=== PATIENT | female | born 1955 | race Caucasian/White ===

== ENCOUNTER 2016-07-05 13:15 | Emergency (ER) | payer OTHER ==
[2016-07-05 13:28] VITALS: BP 145/77; PULSE 86; TEMP 98.5; BMI 20.5
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
== END 2016-07-05 15:11 | disposition home or self-care (01) ==
LOC: JERFT 13:15
DX: T23.191A Burn of first degree of multiple sites of right wrist and hand, initial encounter (principal); X12.XXXA Contact with other hot fluids, initial encounter; Y93.89 Activity, other specified; Y92.251 Museum as the place of occurrence of the external cause; Y99.8 Other external cause status; E78.00 Pure hypercholesterolemia, unspecified; R73.03 Prediabetes; Z86.73 Personal history of transient ischemic attack (TIA), and cerebral infarction without residual deficits
CPT/HCPCS: 99281-25

== ENCOUNTER 2017-04-18 13:42 | Emergency (ER) | payer OTHER ==
--- NOTE | 2017-04-18 14:12 | PDOC ---
History of Present Illness - General Chief Complaint: CVA/TIA Stated Complaint: LT SIDE NUMBNESS Past History - Past Medical History Allergies/Adverse Reactions: Allergies Allergy/AdvReac Type Severity Reaction Status Date / Time No Known Allergies Allergy Verified 07/05/16 13:24 Home Medications: Ambulatory Orders Aspirin [ASA -] 81 mg PO DAILY 03/29/14 Atorvastatin Ca [Lipitor -] 20 mg PO HS 03/29/14 Calcium Carbonate/Vitamin D3 [Calcium + Vitamin D Tablet] 1 each PO DAILY Multivitamins [Multivit ([facility] Formul[facility])] 1 tab PO DAILY 03/29/14 CVA: Yes (TIA) Diabetes: Yes (pre diabetic) Hypercholesterolemia: Yes - Suicide/Smoking/Psychosocial Hx Smoking History: Never smoked Hx Alcohol Use: Yes (SOCIAL) Drug/Substance Use Hx: No Substance Use Type: None
[2017-04-18] MEDS ORDERED: SODIUM CHLORIDE 1,000 ML IV SCH (14:15)
[2017-04-18 14:17] VITALS: BMI 23.3
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
--- NOTE | 2017-04-18 14:53 | EKG ---
Test Reason : Blood Pressure : / mmHG Vent. Rate : 097 BPM Atrial Rate : 097 BPM P-R Int : 158 ms QRS Dur : 082 ms QT Int : 354 ms P-R-T Axes : 066 042 068 degrees QTc Int : 449 ms NORMAL SINUS RHYTHM BIATRIAL ENLARGEMENT CANNOT RULE OUT ANTERIOR INFARCT , AGE UNDETERMINED ABNORMAL ECG WHEN COMPARED WITH ECG OF 04-SEP-2015 12:38, NO SIGNIFICANT CHANGE WAS FOUND Confirmed by CHAD JENKINS, BARRY ([id number]) on 04/18/2017 2:52:37 PM Referred By: Confirmed By:BARRY BONILLA MD
[2017-04-18 14:54] LABS: BASO % 0.5 % (0-2.0); EOS % 0.4 % (0-4.5); HEMATOCRIT 40.3 % (32.4-45.2); HEMOGLOBIN 13.2 GM/dL (10.7-15.3); LYMPH % 28.2 % (8-40); MCH 30.1 pg (25.7-33.7); MCHC 32.7 g/dl (32.0-36.0); MEAN PLT VOLUME 7.8 fl (7.5-11.1); MONO % 6.5 % (3.8-10.2); NEUT % 64.4 % (42.8-82.8); PLATELET COUNT 206 K/MM3 (134-434); RBC 4.38 M/mm3 (3.60-5.2); RDW 13.5 % (11.6-15.6); WHITE BLOOD COUNT 6.3 K/mm3 (4.0-10.0)
[2017-04-18 15:06] LABS: INR 1.13 (0.82-1.09); PROTHROMBIN TIME (PATIENT) 12.8 SEC (9.98-11.88)
[2017-04-18 15:16] LABS: ALBUMIN 4.1 g/dl (3.4-5.0); ANION GAP 8 (8-16); BILIRUBIN,TOTAL 0.5 mg/dL (0.2-1.0); BLOOD UREA NITROGEN 11 mg/dL (7-18); CALCIUM 9.2 mg/dL (8.5-10.1); CHLORIDE 109 mmol/L (98-107); CHOLESTEROL 141 mg/dL (50-200); CO2 25 mmol/L (21-32); CREATININE 0.9 mg/dL (0.55-1.02); GLUCOSE,RANDOM 111 mg/dL (74-106); LDL CHOLESTEROL (ONLY SJRH) 45 mg/dL (5-100); POTASSIUM 3.7 mmol/L (3.5-5.1); SGOT/AST 13 U/L (15-37); SGPT/ALT 31 U/L (12-78); SODIUM 142 mmol/L (136-145); TOT PROT 6.8 g/dl (6.4-8.2); TRIGLYCERIDES 51 mg/dL (35-160)
[2017-04-18 15:17] LABS: ALK PHOS 63 U/L (45-117); HDL CHOLESTEROL 103 mg/dL (40-60)
--- NOTE | 2017-04-18 16:26 | PDOC ---
Attending Attestation - Resident Resident Name: Tequila Vargas - ED Attending Attestation I have performed the following: I have examined & evaluated the patient, The case was reviewed & discussed with the resident, I agree w/resident's findings & plan, Exceptions are as noted - Medical Decision Making 04/18/17 16:22 61-year-old female with multiple medical problems including TIA and hypertension presents to the emergency department with a patch of numbness/ tingling to her left cheek that she states occurs every time she is anxious. Patch is in middle of V2 distribution but does not involve all of V2. Code rendon was activated, CT head was negative for any acute infarct. Symptoms resolved. Patient states the symptoms occur many times per month when she is anxious. Vitals are unremarkable. Exam is unremarkable, patient does not have any sensory deficits to her face or elsewhere and remainder of neurologic exam is unremarkable. Symptoms likely secondary to anxiety. Case discussed with Dr. Deleon who recommends that we discharge her and have her follow-up with him as an outpatient. Patient feels much better and is currently asymptomatic. Labs are unremarkable. Patient requests discharge home. I discussed the physical exam findings, ancillary test results and final diagnoses with the patient. I answered all of the patient's questions. The patient was satisfied with the care received and felt comfortable with the discharge plan and treatment plan. The patient will call their primary care physician within 24 hours to arrange follow-up and will return to the Emergency Department with any new, persistent or worsening symptoms. <Roberto Diaz - Last Filed: 04/18/17 16:22> - HPI HPI: 04/18/17 16:27 The patient is a 61 year old female with a significant PMH of past TIA (2014), anxiety, and hyperlipidemia who presents to the emergency department with an episode of left cheek numbness and tingling at her PCPs office at about 12:30PM which is ongoing. Pt was getting her BP checked at the time and was found to be elevated to the 150s systolic. She notes she has had intermittent episodes like these since her TIA which are usually brought on by anxiety and resolve on their own. She states she gets L cheek numbness multiple times per month when she has anxiety only for a few minutes to an hour. She reports her past TIAs symptoms included entire left side numbness including her upper and lower extremities. She denies extremity numbness or weakness today, facial droop, language deficits, or blurry vision. Denies fevers/chills, viera, N/V/D, CP/SOB, LE edema, urinary sxs. Allergies: NKA PCP: Dr. Peoples - Physicial Exam PE: 04/18/17 16:27 GENERAL: Awake, alert, and fully oriented, in no acute distress HEAD: No signs of trauma EYES: PERRLA, EOMI, sclera anicteric, conjunctiva clear ENT: Auricles normal inspection, hearing grossly normal, nares patent, oropharynx clear without exudates. Moist mucosa NECK: Normal ROM, supple, no lymphadenopathy, JVD, or masses LUNGS: Breath sounds equal, clear to auscultation bilaterally. No wheezes, and no crackles HEART: Regular rate and rhythm, normal S1 and S2, no murmurs, rubs or gallops ABDOMEN: Soft, nontender, normoactive bowel sounds. No guarding, no rebound. No masses EXTREMITIES: Normal range of motion, no edema. No clubbing or cyanosis. No cords , erythema, or tenderness BACK: No midline spinal tenderness in cervical/thoracic/lumbar region NEUROLOGICAL: Normal speech, cranial nerves intact, negative pronator drift, 5/ 5 strength in all 4 extremities, normal sensation to light touch in all 4 extremities, normal cerebellar exam, normal gait, normal reflexes and tone SKIN: Warm, Dry, normal turgor, no rashes or lesions noted. <Rigo Mendosa - Last Filed: 04/18/17 16:27> NIH Stroke Scale - Last Known Well Date/Time & Onset Date Last Known Well: 04/18/17 Time Last Known Well: 12:00 - Initial Evaluation Level of consciousness: Alert Ask patient the month and their age: Answers both correctly Ask patient to open & close eyes; make fist and let go: Obeys both correctly Best gaze (horizontal eye movement): Normal Visual field testing: No visual field loss Facial paresis (Show teeth/raise eyebrows/close eyes tight): Normal symmetrical movement Motor Function: Left Arm: Normal Motor Function: Right Arm: Normal (extends arm 90 (or 45) degrees for 10 seconds without drift Motor Function: Left Leg: Normal (extends leg 30 degrees for 5 seconds without drift) Motor Function: Right Leg: Normal (extends leg 30 degrees for 5 seconds without drift) Limb Ataxia: No ataxia Sensory(Use pinprick test arms,legs,trunk,face/side to side): Normal Best language (Describe picture, name items, read sentences): No Aphasia Dysarthria (read several words): Normal articulation Extinction and Inattention: No abnormality - Total Score NIH Stroke Scale Score: 0 <Roberto Diaz - Last Filed: 04/18/17 16:22>
[2017-04-18 17:03] VITALS: BP 122/68; PULSE 98; TEMP 98.1
== END 2017-04-18 16:29 | disposition home or self-care (01) ==
LOC: JER 13:42
DX: R20.2 Paresthesia of skin (principal); I10 Essential (primary) hypertension; F41.9 Anxiety disorder, unspecified; Z86.73 Personal history of transient ischemic attack (TIA), and cerebral infarction without residual deficits
CPT/HCPCS: 36415; 70450-TC; 80053; 82465; 82550; 83718; 83721; 84478; 84484; 85025; 85610; 86850; 86900; 86901; 93005; 93010; 99283-25

== ENCOUNTER 2022-03-13 13:09 | Emergency (ER) | payer MEDICARE, OTHER ==
[2022-03-13 13:39] VITALS: BP 164/79; PULSE 94; RESP 18; TEMP 97.8; BMI 23.6
[2022-03-13] MEDS ORDERED: TETRACAINE 0.5% OPHTH SOLN 2 ML BOTTLE OD ONE (14:27)
[2022-03-13] MEDS ORDERED: FLUORESCEIN NA 1 EA STRIP OD ONE (14:27)
[2022-03-13] MEDS ORDERED: TETRACAINE 0.5% OPHTH SOLN 2 ML BOTTLE ONE (14:37)
[2022-03-13] MEDS ORDERED: FLUORESCEIN NA 1 EA STRIP ONE (14:37)
== END 2022-03-13 17:20 | disposition home or self-care (01) ==
LOC: JER 13:09 → JERFT 13:09 → JER 17:20
DX: S05.91XA Unspecified injury of right eye and orbit, initial encounter (principal); Y99.8 Other external cause status
CPT/HCPCS: 70480-TC; 99284-25